=== PATIENT | female | born 1955 | race Caucasian/White ===

== ENCOUNTER 2017-06-25 22:37 | Emergency (ER) | payer OTHER ==
[2017-06-25 23:04] VITALS: BP 155/94; PULSE 82; TEMP 98; BMI 27.4
--- NOTE | 2017-06-26 00:40 | PDOC ---
History of Present Illness - General Chief Complaint: Pain, Acute Stated Complaint: pain Time Seen by Provider: 06/26/17 00:08 History Source: Patient Exam Limitations: No Limitations - History of Present Illness Initial Comments: 06/26/17 00:36 Patient is a 62-year-old female past medical history of hypertension, hyperlipidemia, who presents to the ER today complaining of pain to the lump on her right clavicle and upper back pain. Patient states that this bump has been there for approximately 2 years. Today she states that the lump seems to have gotten larger over the past 2 weeks and is now painful. She states that it hurts to lift her arm and that she has associated neck pain. She has taken Tylenol with little relief. She has not been seen by her primary care doctor for this issue because she was afraid to go. Denies fevers, chills, shortness of breath, difficulty breathing, sore throat, cough, recent illness. Past History - Travel Traveled outside of the country in the last 30 days: No Close contact w/someone who was outside of country & ill: No - Past Medical History Allergies/Adverse Reactions: Allergies Allergy/AdvReac Type Severity Reaction Status Date / Time No Known Allergies Allergy Verified 06/25/17 23:04 Home Medications: Ambulatory Orders Amlodipine Besylate [Norvasc -] 5 mg PO HS 06/25/17 Lipitor 5 mg PO HS 06/25/17 Hypercholesterolemia: Yes - Suicide/Smoking/Psychosocial Hx Smoking History: Never smoked Have you smoked in the past 12 months: No Information on smoking cessation initiated: No Hx Alcohol Use: No Drug/Substance Use Hx: No Substance Use Type: None Review of Systems - Review of Systems Able to Perform ROS?: Yes Comments:: 06/26/17 00:38 CONSTITUTIONAL: Absent: fever, chills, diaphoresis, generalized weakness, malaise, loss of appetite HEENT: Absent: rhinorrhea, nasal congestion, throat pain, throat swelling, difficulty swallowing, mouth swelling, ear pain, eye pain, visual Changes CARDIOVASCULAR: Absent: chest pain, loss of consciousness, palpitations, irregular heart rate, peripheral edema RESPIRATORY: Absent: cough, shortness of breath, dyspnea with exertion, orthopnea, wheezing, stridor, hemoptysis GASTROINTESTINAL: Absent: abdominal pain, abdominal distension, nausea, vomiting, diarrhea, constipation, melena, hematochezia GENITOURINARY: Absent: dysuria, frequency, urgency, hesitancy, hematuria, flank pain, genital pain MUSCULOSKELETAL: Absent: myalgia, arthralgia, joint swelling SKIN: Present: Lump to the R clavicle. Absent: rash, itching, pallor HEMATOLOGIC/IMMUNOLOGIC: Absent: easy bleeding, easy bruising, lymphadenopathy, frequent infections ENDOCRINE: Absent: unexplained weight gain, unexplained weight loss, heat intolerance, cold intolerance NEUROLOGIC: Absent: headache, focal weakness or paresthesias, dizziness, unsteady gait, seizure, mental status changes, bladder or bowel incontinence PSYCHIATRIC: Absent: anxiety, depression, suicidal or homicidal ideation, hallucinations. Is the patient limited Greek proficient: No *Physical Exam - Vital Signs Last Vital Signs Temp Pulse Resp BP Pulse Ox 98.0 F 82 16 155/94 100 06/25/17 23:02 06/25/17 23:02 06/25/17 23:02 06/25/17 23:02 06/25/17 23:02 - Physical Exam Comments: 06/26/17 00:39 GENERAL: Well developed, well nourished. Awake and alert. No acute distress. HEENT: Normocephalic, atraumatic. PERRLA, EOMI. No conjunctival pallor. Sclera are non- icteric. Moist mucous membranes. Oropharynx is clear. NECK: Supple. Full ROM. No JVD. Carotid pulses 2+ and symmetric, without bruits. No thyromegaly. No lymphadenopathy. CARDIOVASCULAR: Regular rate and rhythm. No murmurs, rubs, or gallops. Distal pulses are 2+ and symmetric. PULMONARY: No evidence of respiratory distress. Lungs clear to auscultation bilaterally. No wheezing, rales or rhonchi. ABDOMINAL: Soft. Non-tender. Non-distended. No rebound or guarding. No organomegaly. Normoactive bowel sounds. MUSCULOSKELETAL Normal range of motion at all joints. No bony deformities or tenderness. No CVA tenderness. EXTREMITIES: No cyanosis. No clubbing. No edema. No calf tenderness. SKIN: Cystic lesion vs clavicular lymphnode approximately 4cm round in size. Warm and dry. Normal capillary refill. No rashes. No jaundice. NEUROLOGICAL: Alert, awake, appropriate. Cranial nerves 2-12 intact. No deficits to light touch and temperature in face, upper extremities and lower extremities. No motor deficits in the in face, upper extremities and lower extremities. Normoreflexic in the upper and lower extremities. Normal speech. Toes are down- going bilaterally. Gait is normal without ataxia. PSYCHIATRIC: Cooperative. Good eye contact. Appropriate mood and affect. *DC/Admit/Observation/Transfer Diagnosis at time of Disposition: Upper back pain on right side - Discharge Dispostion Disposition: HOME Condition at time of disposition: Stable Admit: No - Referrals Referrals: Juan R Kelley MD [Staff Physician] - - Patient Instructions Printed Discharge Instructions: Thoracic Back Pain Additional Instructions: You have upper back pain of your trapezius muscle on the right side. Please take 800 mg of Motrin every 8 hours as needed for pain. Please take the Flexeril at night before bed. Do not drive after taking this medication as it may make you sleepy. You may use heating pads to the sore area. Please follow- up with her primary care doctor for the bump on your right clavicle. It is important to see her doctor to rule out possibility of cancer. Return to the emergency department if you have worsening pain, fevers, chills, numbness and tingling in your extremity, or have any changes in your symptoms. - Post Discharge Activity
[2017-06-26] MEDS ORDERED: CYCLOBENZAPRINE HCL 10 MG TABLET (FP) PO ONE (00:54)
[2017-06-26] MEDS ORDERED: IBUPROFEN 400 MG TABLET (FP) PO ONE ×2 (00:54→01:00)
[2017-06-26] MEDS ORDERED: CYCLOBENZAPRINE HCL 10 MG TABLET (FP) ONE (01:00)
== END 2017-06-26 02:47 | disposition home or self-care (01) ==
LOC: JER 22:37
DX: M54.6 Pain in thoracic spine (principal)
CPT/HCPCS: 99283-25

== ENCOUNTER 2021-01-05 13:55 | Emergency (ER) | payer OTHER ==
[2021-01-05 14:03] VITALS: BP 146/82; PULSE 84; TEMP 98.1; BMI 27.3
[2021-01-06 08:35] LABS: SARS COV-2 MOLECULAR Positive (Negative)
[2021-01-07 07:07] LABS: SARS-CoV-2 NAA Detected (Not Detected)
== END 2021-01-05 16:21 | disposition home or self-care (01) ==
LOC: JER 13:55
DX: U07.1 COVID-19 (principal)
CPT/HCPCS: 71046-TC-FY; 93005; 93010; 99285-25; C9803; U0003; U0005

== ENCOUNTER 2021-01-06 13:11 | Emergency (ER) | payer OTHER ==
[2021-01-06 13:22] VITALS: BP 124/60; PULSE 80; TEMP 98.1; BMI 29.0
[2021-01-06] MEDS ORDERED: CASIRIVIMAB/IMDEVIMAB 10 ML in SODIUM CHLORIDE 100 ML IVPB ONE (13:28)
== END 2021-01-06 16:36 | disposition home or self-care (01) ==
LOC: JER 13:11
PROC: 3E0233Z Introduction of Anti-inflammatory into Muscle, Percutaneous Approach (ICD-10-PCS; principal; 2021-01-06)
DX: U07.1 COVID-19 (principal)
CPT/HCPCS: 99284-25; Q0240

== ENCOUNTER 2021-09-28 13:42 | Emergency (ER) | payer OTHER ==
[2021-09-28 13:51] VITALS: BP 135/81; PULSE 76; TEMP 98; BMI 30.1
[2021-09-28] MEDS ORDERED: LIDOCAINE 5% TOPICAL PATCH TP ONE (14:59)
[2021-09-28] MEDS ORDERED: KETOROLAC TROMETHAMINE 15 MG/ML VIAL IM ONE (14:59)
[2021-09-28] MEDS ORDERED: LIDOCAINE 5% TOPICAL PATCH ONE (15:47)
[2021-09-28] MEDS ORDERED: KETOROLAC TROMETHAMINE 15 MG/ML VIAL ONE (15:48)
[2021-09-28] MEDS ORDERED: IBUPROFEN 600 MG TABLET (FP) PO ONE (16:58)
[2021-09-28] MEDS ORDERED: LIDOCAINE PATCH REMOVAL MC SCH (22:00)
== END 2021-09-28 17:05 | disposition home or self-care (01) ==
LOC: JER 13:42
PROC: 3E023GC Introduction of Other Therapeutic Substance into Muscle, Percutaneous Approach (ICD-10-PCS; principal; 2021-09-28)
DX: R60.0 Localized edema (principal); M25.572 Pain in left ankle and joints of left foot
CPT/HCPCS: 73610-TC-LT-FY; 93971-TC; 99284-25